=== PATIENT | male | born 2000 | race Two or more races ===

== ENCOUNTER 2020-04-25 09:39 | Emergency (ER) | payer OTHER ==
[2020-04-25 09:48] VITALS: BMI 19.3
[2020-04-25] MEDS ORDERED: ACETAMINOPHEN 325 MG TABLET (FP) PO ONE (10:10)
[2020-04-25] MEDS ORDERED: ACETAMINOPHEN 325 MG TABLET (FP) ONE (10:26)
[2020-04-25 12:00] VITALS: BP 122/69; PULSE 66; TEMP 98.6
== END 2020-04-25 12:24 | disposition home or self-care (01) ==
LOC: JER 09:39
DX: R56.9 Unspecified convulsions (principal); S09.90XA Unspecified injury of head, initial encounter; Y99.9 Unspecified external cause status
CPT/HCPCS: 70450-TC; 99284-25